=== PATIENT | female | born 1950 | race Caucasian/White ===

== ENCOUNTER 2024-09-28 10:49 | Outpatient (RCR) | payer MEDICARE, SELFPAY | END 2024-12-01 12:56 | disposition home or self-care (01) | LOC: PT 10:49 | PROVIDERS: PCP Orthopaedic Surgery; Visit Provider Orthopaedic Surgery | DX: M25.511 Pain in right shoulder (principal); M75.41 Impingement syndrome of right shoulder | CPT/HCPCS: 97035; 97110; 97162 ==